=== PATIENT | female | born 1970 | race Caucasian/White ===

== ENCOUNTER 2018-06-07 17:05 | Observation (INO) | payer OTHER, SELFPAY ==
[2018-06-07] VITALS (10 sets, daily range): BP systolic 121–162; BP diastolic 69–82; PULSE 74–92; RESP 15–21; TEMP 36.7–36.9; O2SAT 99–100; BMI 38.7; BMI 37.9; BMI 38.0
--- NOTE | 2018-06-07 17:43 | EKG12_ITS ---
Test Reason : CHEST PAIN Blood Pressure : / mmHG Vent. Rate : 077 BPM Atrial Rate : 077 BPM P-R Int : 142 ms QRS Dur : 086 ms QT Int : 394 ms P-R-T Axes : 022 016 061 degrees QTc Int : 445 ms Normal sinus rhythm T wave abnormality, consider inferior ischemia T wave abnormality, consider anterolateral ischemia Abnormal ECG Confirmed by KIAH WALSH ([id number]), greeting card editor JERMAIN PORRAS ([id number]) on 06/23/2018 11:43:05 AM Referred By: Rukhsana Velázquez Confirmed By:KIAH WALSH
--- NOTE | 2018-06-07 17:44 | ED.VISSUMM ---
- ER Visit Summary Date of Service: 06/07/18 Chief Complaint: Chest pain History of Present Illness: The patient is a 48 F who presents for chest tightness. Onset was last night at rest, and it has gradually worsened. For 2 hours patient has had radiation into the right shoulder and arm that she describes as tingling and numbness. Tightness worsens with deep breaths or exertion. No change with movement. If patient tries to take a deep breath she ends up having to cough because of the tightness. No nausea, vomiting, abdominal pain, fever, recent illness. No back pain. Patient took 1 baby aspirin prior to coming in. She has a family history of coronary artery disease at a young age. Also family history of DVTs. Physical Examination: Vital signs: afebrile, hemodynamically stable, no hypoxia on room air General: well nourished, well developed, in no distress Skin: warm, dry, no rash, no pallor HEENT: normocephalic and atraumatic; PERRL, EOMI, moist mucous membranes Cardiovascular: regular rate and rhythm with soft systolic murmurs, no peripheral edema, 2+ pulses all distal extremities Respiratory: No increased work of breathing, lungs are clear to auscultation bilaterally, no rales, rhonchi or wheezing Abdominal: Abdomen is soft, nontender with normoactive bowel sounds, no guarding or rebound, no masses MSK: Moves all extremities, no deformities, normal strength Neuro: Awake and alert, oriented ?4. No facial droop, sensation and motor function intact and symmetric Test Results: Abnormal Lab Results 06/07/18 06/07/18 06/07/18 17:15 17:15 17:15 WBC 7.3 RBC 4.23 Hgb 11.3 L Hct 35.7 L MCV 84.4 MCH 26.7 L MCHC 31.7 L RDW 15.2 H RDW Differential 47.3 H Plt Count 306 MPV 10.6 Immature Gran % (Auto) 0.000 Neut % (Auto) 69.5 Lymph % (Auto) 21.8 [place] % (Auto) 7.0 Eos % (Auto) 1.4 Baso % (Auto) 0.3 Absolute Neuts (auto) 5.1 Absolute Lymphs (auto) 1.59 Total Counted Not Reportable PT 13.8 INR 1.1 APTT 28.1 D-Dimer Quant (PE/DVT) 0.33 Sodium 142 Potassium 3.5 Chloride 108 H Carbon Dioxide 25.0 Anion Gap 9 BUN 7 Creatinine 0.91 Estim Creat Clear Calc 64.58 Est GFR (MDRD) Af Amer 85 Est GFR (MDRD) Non-Af 70 BUN/Creatinine Ratio 7.7 L Glucose 94 Calcium 8.5 Troponin I < 0.015 Clinical Impression(s) from Imaging Studies Chest X-Ray 06/07/18 18:00 IMPRESSION: No acute cardiopulmonary process. Electronically Signed: Love Rios MD at 19:05 EST Tel , Service support , Medications Given Sodium Chloride () 1,000 mls @ 250 mls/hr IV .Q4H MICA Last Admin: 06/07/18 18:00 Dose: 250 mls/hr Discontinued Medications Aspirin (Aspirin, Baby) 324 mg PO X1 STA Stop: 06/07/18 17:43 Last Admin: 06/07/18 18:00 Dose: 324 mg Nitroglycerin (Nitrostat) 0.4 mg SUBLINGUAL Q5M MICA Stop: 06/07/18 17:56 Last Admin: 06/07/18 18:20 Dose: 0.4 mg Admin: 06/07/18 18:11 Dose: 0.4 mg Admin: 06/07/18 18:01 Dose: 0.4 mg Emergency Department Course and Treatment: [] Patient presents for chest pain, acutely worsening now with radiation into the right arm and shortness of breath. Patient has no personal risk factors for DVT but there is a family history of coagulopathy. D-dimer was performed and was within normal limits. EKG showed nonspecific ST and T wave changes but no obvious acute ischemic changes. Troponin negative. Labs otherwise unremarkable. Chest x-ray showed no acute process. Patient received additional aspirin and was given 3 sublingual nitroglycerin with complete resolution of her pain. Heart score is 4, which puts her at moderate risk for 30-day MACE. Patient will benefit from further cardiac workup and was discussed with the hospitalist for chest pain rule out. Treatment Plan: [] Disposition: [] Impression: Acute chest pain, concern for acute coronary syndrome This note was generated with [employer] software. It may contain incorrect words, spelling, and punctuation that were not noted in review of the chart prior to signing ED Disposition - Plan for ED Patient: Chief Complaint: Chest Pain Referrals: Ld Calhoun MD [NON-STAFF] -
[2018-06-07 17:52] LABS: Absolute Lymphocyte Count 1.59 X10^3/ul (0.83-4.51); Absolute Neutrophil Count 5.1 X10^3/uL (2.0-7.7); Basophil# 0.02 X10^3/uL; Basophil% 0.3 % (0-1); Eosinophils% 1.4 % (0-5); Hematocrit 35.7 % (37-47); Hemoglobin 11.3 g/dl (12.0-15.0); Lymphocyte # 1.59 X10^3/ul (4.0); Lymphocyte % 21.8 % (19-41); Mean Corp Hgb Conc 31.7 g/gl (32-36); Mean Corpuscular Hgb 26.7 pg (27.0-32.0); Mean Corpuscular Volume 84.4 fL (81-99); Mean Platelet Vol. 10.6 fl (6.2-12.0); Monocyte# 0.51 X10^3/uL; Neutrophil # 5.07 X10^3/uL (2.7-7.7); Neutrophil % 69.5 % (47-70); Platelet Count 306 K/mm3 (150-450); RBC Distribution Width CV 15.2 % (11.6-14.6); RBC Distribution Width SD 47.3 fl (35.1-43.9); Red Blood Count 4.23 M/mm3 (4.2-5.4); White Blood Count 7.3 K/mm3 (4.4-11.0)
[2018-06-07 17:53] LABS: POSITIVE COUNT NO; POSITIVE DIFFERENTIAL NO; POSITIVE MORPHOLOGY NO
[2018-06-07 17:55] LABS: International Normalized Ratio 1.1; Prothrombin Time (Protime)PT. 13.8 SECONDS (11.7-14.9)
[2018-06-07 17:56] LABS: Partial Thromboplast Time 28.1 Seconds (24.1-36.2)
[2018-06-07 17:58] LABS: D-Dimer Quantitative (DVT/PE) 0.33 FEU/ug/m (0.27-0.49)
[2018-06-07] MEDS: Aspirin 81 MG TAB.CHEW 324 MG PO (18:00)
[2018-06-07] MEDS: 0.9% Normal Saline 1,000 ML 250 ML IV (18:00)
--- NOTE | 2018-06-07 18:00 | RAD_ITS ---
STUDY: X-RAY CHEST REASON FOR EXAM: Female, 48 years old. Chest tightness. TECHNIQUE: PA and lateral views of the chest. COMPARISON: None. FINDINGS: The lungs are clear and expanded. There is no demonstrated pleural abnormality. Normal size heart. Normal mediastinum and pedro. Normal visualized pulmonary arteries. Normal visualized aortic arch and descending thoracic aorta. Normal visualized thoracic spine. Normal visualized ribs, clavicles, and shoulders. There is no demonstrated abnormality of the visualized soft tissue structures of the upper abdomen. RAD/Chest PA and Lateral IMPRESSION: No acute cardiopulmonary process. Electronically Signed: Love Rios MD at 19:05 EST Tel , Service support ,
[2018-06-07 18:04] LABS: Anion Gap 9 (5-15); BUN 7 mg/dL (7-18); BUN/Creat Ratio 7.7 RATIO (10-20); Calcium,Total 8.5 mg/dL (8.5-10.1); Chloride 108 mmol/L (98-107); Creatinine, Serum 0.91 mg/dL (0.55-1.02); EST Glomerular Filtration Rate 70 mL/min (>60); Est Glom Filt Rate - Afr Amer 85 mL/min (>60); Estimated Creatinine Clearance 64.58 ml/min; Glucose 94 mg/dL (74-106); Potassium 3.5 mmol/L (3.5-5.1); Sodium Level 142 mmol/L (136-145)
--- NOTE | 2018-06-07 20:31 | HP.PCM_ITS ---
History of Present Illness Date of Admission: 06/07/18 Chief Complaint: Chest pain The patient is a 48 year old F with past medical history of depression. She was admitted through the ED on 06/07/2018 with a complaint of chest pain about a days duration. Pain is retrosternal, described as a tightness and discomfort, with a stiff shortness of breath, diaphoresis and lightheadedness. She has not had such chest pain in the past. She denies any fever or chills, any cough, any palpitations, any abdominal pain, any diarrhea vomiting. She has a strong family history of cardiovascular disease with her father having multiple heart attacks and her brother also having multiple strokes. She is never been a s moker but was exposed to secondhand smoke for 21 years. Review of systems otherwise negative. Vitals in the ED was significant for respiratory rate of 21 and CBC and BMP were essentially unremarkable. Initial troponin was negative and EKG showed mild T wave inversions in anterolateral and inferior leads. Chest x-ray showed no acute cardiopulmonary process. She is been admitted to manage for chest pain to rule out ACS. [] Past Medical History Medical History: Medical History (Last Reviewed 10/27/17 @ 06:36 by Montserrat Gamble) Arthritis M19.90 Fatigue R53.83 Hx of fracture of fibula Z87.81 Hx of fracture of tibia Z87.81 Incontinence R32 Knee pain M25.569 Migraine G43.909 induced hypertension O13.9 Stomach ulcer K25.9 Allergies cephalexin [From Keflex] Allergy (Verified 10/27/17 06:36) Other keflex Adverse Reaction (Uncoded 10/02/17 11:51) yeast infection Home Medications: Ambulatory Orders Medication Instructions Recorded Bupropion HCl [Bupropion Xl] 300 mg PO DAILY 06/07/18 Cholecalciferol (Vitamin D3) 2,000 unit PO DAILY 06/07/18 [Vitamin D3] Surgical History: Surgical History (Last Reviewed 10/27/17 @ 06:36 by Montserrat Gamble) Hx of total knee arthroplasty Z96.659 Psychiatric History: Depression GIS DATABASE ADMINISTRATOR History: No pertinent GIS DATABASE ADMINISTRATOR history Lives: With Family - exposed to second hand smoke for 21 years Smoking Status: Never smoker Alcohol: None - *Family History Paternal Family History: Family History (Last Reviewed 05/14/18 @ 06:36 by Montserrat Gamble) Other CAD (coronary artery disease) Depression Diabetes High cholesterol Hypertension Obesity Thyroid disorder History Items: Heart Disease, Hypertension Sibling Family History: Family History (Last Reviewed 10/27/17 @ 06:36 by Montserrat Gamble) Other CAD (coronary artery disease) Depression Diabetes High cholesterol Hypertension Obesity Thyroid disorder History Items: Stroke Review of Systems Constitutional: Denies: Chills, Fever, Malaise, Weakness, Weight Change, Fatigue Eyes: Denies: Blurred vision HEENT: Denies: Head Aches, Sinus Congestion, Sinus Drainage Cardiovascular: Reports: Chest Pain, Chest Pressure, Chest Tightness, Heaviness, Light Headedness. Denies: Edema, Orthopnea, Palpitations Respiratory: Reports: Shortness of Breath. Denies: Cough, Shortness of breath at rest, Sputum production Gastrointestinal: Denies: Abdominal Pain, Nausea, Vomiting Genitourinary: Denies: Dysuria Musculoskeletal: Denies: Joint Pain, Joint Tenderness Skin: Denies: Rash, Wounds Neurological: Denies: Numbness, Tingling, Focal weakness Psychiatric: Denies: Anxiety, Depression, Homicidal Ideations, Suicidal Ideations Hematologic/ Lymphatic: Denies: Easy Bruising, Easy Bleeding VTE Information - Inpt Only VTE Present on Admission: No VTE Pharm Prophylaxis ordered?: Yes - Physical Exam General: Alert, Oriented x3, Cooperative, No apparent distress HEENT: Atraumatic, PERRLA, EOMI, Normocephalic Oral: Moist Mucosa Neck: Supple, No JVD, Negative Carotid Bruits Lungs: Clear to auscultation, Normal air movement, No rhonchi, No wheeze, No rales Cardiovascular: Regular rate, Regular Rhythm, Normal S1, Normal S2, No murmurs Abdomen: Bowel Sounds Present, Soft, Non Tender, Non-Distended, No Hepato- splenomegaly Extremities: No clubbing, No cyanosis, No edema, Capillary Refill Less than 3 Seconds Skin: No rashes, No breakdown Musculoskeletal: No Tenderness to Palpation of Joints or Extremities Lymphatic: No Cervical, Supraclavicular, or Inguinal Adenopathy Neurological: Cranial nerves II-XII grossly intact Psych/Mental Status: Normal Affect, Appropriate, Alert and oriented to time, place, person, mood and affect Vital Signs Temp Pulse Resp BP Pulse Ox 98.1 F 76 15 123/70 H 100 06/07/18 17:06 06/07/18 19:44 06/07/18 19:44 06/07/18 19:44 06/07/18 19:44 Oxygen Delivery Method Room Air Weight: 225 lb 12.054 oz Body Mass Index (BMI) 38.7 Laboratory Tests Past 24 Hrs 06/07/18 06/07/18 06/07/18 17:15 17:15 17:15 WBC 7.3 RBC 4.23 Hgb 11.3 L Hct 35.7 L MCV 84.4 MCH 26.7 L MCHC 31.7 L RDW 15.2 H RDW Differential 47.3 H Plt Count 306 MPV 10.6 Immature Gran % (Auto) 0.000 Neut % (Auto) 69.5 Lymph % (Auto) 21.8 [place] % (Auto) 7.0 Eos % (Auto) 1.4 Baso % (Auto) 0.3 Absolute Neuts (auto) 5.1 Absolute Lymphs (auto) 1.59 Total Counted Not Reportable PT 13.8 INR 1.1 APTT 28.1 D-Dimer Quant (PE/DVT) 0.33 Sodium 142 Potassium 3.5 Chloride 108 H Carbon Dioxide 25.0 Anion Gap 9 BUN 7 Creatinine 0.91 Estim Creat Clear Calc 64.58 Est GFR (MDRD) Af Amer 85 Est GFR (MDRD) Non-Af 70 BUN/Creatinine Ratio 7.7 L Glucose 94 Calcium 8.5 Troponin I < 0.015 Diagnostic Data Chest X-Ray 06/07/18 18:00 IMPRESSION: No acute cardiopulmonary process. Electronically Signed: Love Rios MD at 19:05 EST Tel , Service support , Assessment/Plan All Active Problems (Last Reviewed 10/27/17 @ 06:36 by Montserrat Gamble) Impetigo (Acute) Maxillary sinusitis (Acute) Conjunctivitis (Acute) 48-year-old female admitted with a complaint of chest pain 1. Chest pain to rule out ACS * Initial troponin negative but EKG showed mild T wave inversions in lateral leads. * Admit to PCU with telemetry * Cycle troponins * For stress test tomorrow if troponins are negative * 2. Depression: On bupropion DVT prophylaxis: Lovenox Code Visit OBSV E&M: [id number] Initial observation care L2
--- NOTE | 2018-06-07 21:20 | EKG12_ITS ---
Test Reason : CP ADMISSION Blood Pressure : / mmHG Vent. Rate : 078 BPM Atrial Rate : 078 BPM P-R Int : 148 ms QRS Dur : 088 ms QT Int : 394 ms P-R-T Axes : 046 013 058 degrees QTc Int : 449 ms Normal sinus rhythm Nonspecific T wave abnormality Abnormal ECG When compared with ECG of 07-JUN-2018 17:08, MANUAL COMPARISON REQUIRED, DATA IS UNCONFIRMED Confirmed by KIAH WALSH ([id number]), scientific editor JERMAIN PORRAS ([id number]) on 06/23/2018 1:08:52 PM Referred By: Rukhsana Velázquez Confirmed By:KIAH WALSH
[2018-06-07 21:56] LABS: Cholesterol 205 mg/dL (200); High Density Lipoprotein 52 mg/dL; Triglycerides 119 mg/dL; Very Low Density Lipoprotein 24 mg/dL (5-40)
[2018-06-08] VITALS (8 sets, daily range): BP systolic 99–118; BP diastolic 51–59; PULSE 63–87; RESP 16; TEMP 36.6–36.9; O2SAT 96–99
[2018-06-08] MEDS: Acetaminophen 325 MG Tablet 650 MG PO (00:56)
[2018-06-08] MEDS: 0.9% NaCl Peripheral Flush Adult/Peds IV (00:57)
[2018-06-08 03:51] LABS: Absolute Lymphocyte Count 1.68 X10^3/ul (0.83-4.51); Absolute Neutrophil Count 3.5 X10^3/uL (2.0-7.7); Basophil# 0.02 X10^3/uL; Basophil% 0.3 % (0-1); Eosinophil# 0.17 X10^3/uL; Eosinophils% 2.9 % (0-5); Hematocrit 30.6 % (37-47); Lymphocyte # 1.68 X10^3/ul (4.0); Lymphocyte % 28.3 % (19-41); Mean Corp Hgb Conc 32.7 g/gl (32-36); Mean Corpuscular Hgb 27.9 pg (27.0-32.0); Mean Corpuscular Volume 85.5 fL (81-99); Mean Platelet Vol. 11.1 fl (6.2-12.0); Monocyte# 0.59 X10^3/uL; Monocyte% 9.9 % (0-10); Neutrophil # 3.47 X10^3/uL (2.7-7.7); Neutrophil % 58.4 % (47-70); Platelet Count 265 K/mm3 (150-450); RBC Distribution Width CV 15.2 % (11.6-14.6); RBC Distribution Width SD 45.9 fl (35.1-43.9); Red Blood Count 3.58 M/mm3 (4.2-5.4); White Blood Count 5.9 K/mm3 (4.4-11.0)
[2018-06-08 03:52] LABS: POSITIVE COUNT NO; POSITIVE DIFFERENTIAL NO; POSITIVE MORPHOLOGY NO
[2018-06-08 03:54] LABS: International Normalized Ratio 1.1; Prothrombin Time (Protime)PT. 14.2 SECONDS (11.7-14.9)
[2018-06-08 04:02] LABS: Anion Gap 8 (5-15); BUN 7 mg/dL (7-18); BUN/Creat Ratio 9.8 RATIO (10-20); Calcium,Total 7.8 mg/dL (8.5-10.1); Chloride 110 mmol/L (98-107); Creatinine, Serum 0.71 mg/dL (0.55-1.02); EST Glomerular Filtration Rate 93 mL/min (>60); Est Glom Filt Rate - Afr Amer 112 mL/min (>60); Estimated Creatinine Clearance 82.77 ml/min; Glucose 91 mg/dL (74-106); Potassium 3.4 mmol/L (3.5-5.1); Sodium Level 144 mmol/L (136-145)
--- NOTE | 2018-06-08 05:55 | EKG12_ITS ---
Test Reason : AM EKG Blood Pressure : / mmHG Vent. Rate : 069 BPM Atrial Rate : 069 BPM P-R Int : 156 ms QRS Dur : 094 ms QT Int : 432 ms P-R-T Axes : 048 019 035 degrees QTc Int : 462 ms Normal sinus rhythm Normal ECG When compared with ECG of 07-JUN-2018 21:42, MANUAL COMPARISON REQUIRED, DATA IS UNCONFIRMED Confirmed by KIAH WALSH ([id number]), sound editor JERMAIN PORRAS ([id number]) on 06/23/2018 1:10:59 PM Referred By: Rukhsana Velázquez Confirmed By:KIAH WALSH
[2018-06-08] MEDS: Aspirin 81 MG TAB.CHEW PO (06:41)
[2018-06-08] MEDS: buPROPion (XL) 300 MG TABLET.XL PO (13:50)
--- NOTE | 2018-06-08 15:50 | STRESSREP ---
Stress Test Report Date: 06/08/2018 Procedure: Exercise tolerance test/imaging study Indications: Chest pain Consent: Per the patient Procedure: The patient exercised on a Tito protocol for 5 minutes and 30 seconds completing Stage IO and 2 minutes and 30 seconds of Stage II achieving a peak heart rate of 169 bpm (98 % predicted maximalheart rate) with a peak blood pressure 160/74 mmHg and a peak MET capacity of 7 METs. The baseline ECG demonstrated normal sinus rhythm. The peak exercise ECG demonstrated no obvious ECG changes. There were no cardiac dysrhythmias pretest, during exercise, or recovery. The functional capacity was considered average. There was a complaint of chest discomfort during exercise and mild chest discomfort during recovery with spontaneous resolution. The examination was discontinued secondary to dyspnea. Impression: 1. Technically adequate (percent predicted maximal heart rate greater than 85%) exercise tolerance test 2. Peak exercise ECG with no obvious ECG change 3. There were no cardiac dysrhythmias pretest, during exercise, or recovery 4. Nuclear images pending Myocardial perfusion imaging study: Technique: The patient was injected with 14.6 mCi of technetium 99m Cardiolite and subsequently rest SPECT Cardiolite nuclear imaging was obtained in the horizontal long, vertical long, and short axis views. The patient exercised on a Tito protocol for 5 minutes and 30 seconds completing Stage I and 2 minutes and 30 seconds of Stage II achieving a peak heart rate of 169 bpm (98 % predicted maximal heart rate) with a peak blood pressure 160/74 mmHg and a peak MET capacity of 7 METs. The patient was injected with 45 mCi of technetium 99m Cardiolite and subsequently stress SPECT Cardiolite nuclear imaging was obtained in the horizontal long, vertical long, and short axis views. A gated Cardiolite study at peak stress was obtained. Interpretation: Rest and stress SPECT Cardiolite nuclear imaging status post realignment, normalization, and attenuation correction, demonstrates the appearance of relative uniform tracer uptake and myocardial perfusion appearing within normal limits. There is end systolic thickening and brightening. The gated Cardiolite study demonstrates myocardial thickening and inward wall motion. The reported LVEF is 76 %. Impression: 1. Rest and stress SPECT Cardiolite nuclear imaging demonstrate relative uniform tracer uptake and myocardial perfusion appearing within normal limits. 2. The gated Cardiolite study reports an LVEF of 76 %. This note was generated with [employer] software. It may contain incorrect words, spelling, and punctuation that were not noted in checking the note before signing.
--- NOTE | 2018-06-08 16:02 | DCINST_ITS ---
You will use the following diet at home:: Regular Your food should be the consistency of: Regular Your liquids should be the consistency of: Regular/Thin Discharge Activity: Return to Normal Activity, No Restrictions Call your doctor if you observe: Shortness of breath, Dizziness, Fainting spells, Chest pain, Increased palpitations (irregular heartbeat) Allergies/Adverse Reactions: Allergies cephalexin [From Keflex] Allergy (Verified 10/27/17 06:36) Other keflex Adverse Reaction (Uncoded 10/02/17 11:51) yeast infection Medications to take at Discharge Bupropion HCl [Bupropion Xl] 300 mg PO DAILY 06/07/18 Cholecalciferol (Vitamin D3) [Vitamin D3] 2,000 unit PO DAILY 06/07/18 Primary Care Physician: Ld Calhoun MD [NON-STAFF] - Please follow up with your Primary Care Physician in: 3-5 days Test Results: Test results from this visit will be discussed in further detail at your follow- up appointment, if applicable.
--- NOTE | 2018-06-08 16:07 | DS.PCM_ITS ---
Discharge Date and Diagnosis Date of Admission: 06/07/18 Date of Discharge: 06/08/18 Hospital Course and Treatment Imaging Results: 06/08/18 12:15 Nuclear Stress Test - Treadmil [NM] Routine Consults: None Operations: None Procedures: Nuclear stress test - Interpretation: Rest and stress SPECT Cardiolite nuclear imaging status post realignment, normalization, and attenuation correction, demonstrates the appearance of relative uniform tracer uptake and myocardial perfusion appearing within normal limits. There is end systolic thickening and brightening. The gated Cardiolite study demonstrates myocardial thickening and inward wall motion. The reported LVEF is 76 %. Impression: 1. Rest and stress SPECT Cardiolite nuclear imaging demonstrate relative uniform tracer uptake and myocardial perfusion appearing within normal limits. 2. The gated Cardiolite study reports an LVEF of 76 %. Summary of Care Provided: Per HPI: The patient is a 48 year old F with past medical history of depression. She was admitted through the ED on 06/07/2018 with a complaint of chest pain about a days duration. Pain is retrosternal, described as a tightness and discomfort, with a stiff shortness of breath, diaphoresis and lightheadedness. She has not had such chest pain in the past. She denies any fever or chills, any cough, any palpitations, any abdominal pain, any diarrhea vomiting. She has a strong family history of cardiovascular disease with her father having multiple heart attacks and her brother also having multiple strokes. She is n ever been a smoker but was exposed to secondhand smoke for 21 years. Review of systems otherwise negative. Vitals in the ED was significant for respiratory rate of 21 and CBC and BMP were essentially unremarkable. Initial troponin was negative and EKG showed mild T wave inversions in anterolateral and inferior leads. Chest x-ray showed no acute cardiopulmonary process. She is been admitted to manage for chest pain to rule out ACS. Vital Signs - 24 hr Temp Pulse Resp BP Pulse Ox 06/08/18 15:19 87 06/08/18 13:59 98 F 85 16 113/59 L 97 06/08/18 11:00 71 06/08/18 09:15 98.4 F 77 16 118/57 L 96 06/08/18 07:13 65 06/08/18 06:36 97.9 F 63 16 99/51 L 99 06/08/18 04:00 98.0 F 70 16 105/54 L 98 06/08/18 03:00 71 06/07/18 23:00 92 06/07/18 21:58 98.5 F 75 16 121/69 H 99 06/07/18 20:40 98.4 F 75 21 H 124/70 H 99 06/07/18 19:44 76 15 123/70 H 100 06/07/18 18:20 82 124/79 H 06/07/18 18:11 74 140/81 H 06/07/18 18:05 82 17 140/81 H 99 06/07/18 18:01 80 137/82 H 06/07/18 17:50 100 06/07/18 17:06 98.1 F 78 19 H 162/75 H 100 General: Alert, Oriented x3, Cooperative, No apparent distress HEENT: Atraumatic, EOMI, Normocephalic Oral: Moist Mucosa Neck: Supple, No JVD Lungs: Clear to auscultation, Normal air movement, No rhonchi, No wheeze, No rales Cardiovascular: Regular rate, Regular Rhythm, Normal S1, Normal S2, No murmurs Abdomen: Soft, Non Tender, Non-Distended, No Hepato-splenomegaly Extremities: No edema, Capillary Refill Less than 3 Seconds Skin: No rashes, No breakdown Musculoskeletal: No Tenderness to Palpation of Joints or Extremities Neurological: Motor Exam 5/5 strength throughout, Sensory exam intact to light touch and pain Psych/Mental Status: Normal Affect, Appropriate Hospital Course: 1. Chest pain rule out - She presented with intermittent substernal chest ti ghtness and pressure not so much pain. She had an EKG which was nonischemic, and she had serial troponins that were negative. She underwent a cardiac stress test today which was negative for any ischemic changes. Part of the concern with her, is that her father had a heart attack at the age of 46 and had 4 vessels blocked. Does admit that she has had some stress over the last couple months with buying a new house and the holidays. She was just recently increased on her Wellbutrin to 300 mg on . I did discuss with her weight loss techniques and dieting and exercising, she is to follow-up with her PCP in 3-5 days. Since her stress test was negative and she is only 48 years old, no aspirin on discharge at this time. 2. Depression/anxiety - Continue with Wellbutrin and follow-up with PCP. - Physical Exam Vital Signs Temp Pulse Resp BP Pulse Ox 98 F 87 16 113/59 L 97 06/08/18 13:59 06/08/18 15:19 06/08/18 13:59 06/08/18 13:59 06/08/18 13:59 Oxygen Delivery Method Room Air Weight: 221 lb 1.978 oz Body Mass Index (BMI) 37.9 Intake and Output for Last 24 Hours 06/06/18 06/07/18 06/08/18 23:59 23:59 23:59 Intake Total 240 / 240 Balance 240 / 240 Laboratory Tests Past 24 Hrs 06/07/18 06/07/18 06/07/18 17:15 17:15 17:15 WBC 7.3 RBC 4.23 Hgb 11.3 L Hct 35.7 L MCV 84.4 MCH 26.7 L MCHC 31.7 L RDW 15.2 H RDW Differential 47.3 H Plt Count 306 MPV 10.6 Immature Gran % (Auto) 0.000 Neut % (Auto) 69.5 Lymph % (Auto) 21.8 [place] % (Auto) 7.0 Eos % (Auto) 1.4 Baso % (Auto) 0.3 Absolute Neuts (auto) 5.1 Absolute Lymphs (auto) 1.59 Total Counted Not Reportable PT 13.8 INR 1.1 APTT 28.1 D-Dimer Quant (PE/DVT) 0.33 Sodium 142 Potassium 3.5 Chloride 108 H Carbon Dioxide 25.0 Anion Gap 9 BUN 7 Creatinine 0.91 Estim Creat Clear Calc 64.58 Est GFR (MDRD) Af Amer 85 Est GFR (MDRD) Non-Af 70 BUN/Creatinine Ratio 7.7 L Glucose 94 Calcium 8.5 Troponin I < 0.015 Triglycerides Cholesterol LDL Cholesterol VLDL Cholesterol HDL Cholesterol 06/07/18 06/07/18 06/08/18 17:15 21:32 00:15 WBC RBC Hgb Hct MCV MCH MCHC RDW RDW Differential Plt Count MPV Immature Gran % (Auto) Neut % (Auto) Lymph % (Auto) [place] % (Auto) Eos % (Auto) Baso % (Auto) Absolute Neuts (auto) Absolute Lymphs (auto) Total Counted PT INR APTT D-Dimer Quant (PE/DVT) Sodium Potassium Chloride Carbon Dioxide Anion Gap BUN Creatinine Estim Creat Clear Calc Est GFR (MDRD) Af Amer Est GFR (MDRD) Non-Af BUN/Creatinine Ratio Glucose Calcium Troponin I < 0.015 < 0.015 Triglycerides 119 Cholesterol 205 H LDL Cholesterol 129 VLDL Cholesterol 24 HDL Cholesterol 52 06/08/18 06/08/18 06/08/18 03:32 03:32 03:32 WBC 5.9 RBC 3.58 L Hgb 10.0 L Hct 30.6 L MCV 85.5 MCH 27.9 MCHC 32.7 RDW 15.2 H RDW Differential 45.9 H Plt Count 265 MPV 11.1 Immature Gran % (Auto) 0.200 Neut % (Auto) 58.4 Lymph % (Auto) 28.3 [place] % (Auto) 9.9 Eos % (Auto) 2.9 Baso % (Auto) 0.3 Absolute Neuts (auto) 3.5 Absolute Lymphs (auto) 1.68 Total Counted Not Reportable PT INR APTT D-Dimer Quant (PE/DVT) Sodium 144 Potassium 3.4 L Chloride 110 H Carbon Dioxide 26.0 Anion Gap 8 BUN 7 Creatinine 0.71 Estim Creat Clear Calc 82.77 Est GFR (MDRD) Af Amer 112 Est GFR (MDRD) Non-Af 93 BUN/Creatinine Ratio 9.8 L Glucose 91 Calcium 7.8 L Troponin I < 0.015 Triglycerides Cholesterol LDL Cholesterol VLDL Cholesterol HDL Cholesterol 06/08/18 03:32 WBC RBC Hgb Hct MCV MCH MCHC RDW RDW Differential Plt Count MPV Immature Gran % (Auto) Neut % (Auto) Lymph % (Auto) [place] % (Auto) Eos % (Auto) Baso % (Auto) Absolute Neuts (auto) Absolute Lymphs (auto) Total Counted PT 14.2 INR 1.1 APTT 30.0 D-Dimer Quant (PE/DVT) Sodium Potassium Chloride Carbon Dioxide Anion Gap BUN Creatinine Estim Creat Clear Calc Est GFR (MDRD) Af Amer Est GFR (MDRD) Non-Af BUN/Creatinine Ratio Glucose Calcium Troponin I Triglycerides Cholesterol LDL Cholesterol VLDL Cholesterol HDL Cholesterol Discharge Activity: Return to Normal Activity, No Restrictions Call your doctor if you observe: Shortness of breath, Dizziness, Fainting spells, Chest pain, Increased palpitations (irregular heartbeat) Home Medications: Medications to take at Discharge Bupropion HCl [Bupropion Xl] 300 mg PO DAILY 06/07/18 Cholecalciferol (Vitamin D3) [Vitamin D3] 2,000 unit PO DAILY 06/07/18 Primary Care Physician: Ld Calhoun MD [NON-STAFF] - Please follow up with your Primary Care Physician in: 3-5 days Disposition: Home Minutes spent on discharge:: 35 Patient Condition:: Good Medical Necessity - Tobacco Use Smoking Status: Never smoker Meaningful Use Info Meaningful Use Diagnoses (Choose all that apply): None applicable Code Visit OBSV E&M: 23228 Observation care discharge
[2018-06-08] MEDS: Enoxaparin 40 MG/0.4 ML Syringe SC (16:08)
== END 2018-06-08 16:02 | disposition home or self-care (01) ==
LOC: ED 18:26 → PCU 20:39
PROVIDERS: Admitting Provider Student in an Organized Health Care Education/Training Program; Emergency Provider Emergency Medicine; Referring Provider Student in an Organized Health Care Education/Training Program; Visit Provider Family Medicine
DX: R07.89 Other chest pain (principal); Z23 Encounter for immunization; R20.2 Paresthesia of skin; R20.0 Anesthesia of skin; Z82.49 Family history of ischemic heart disease and other diseases of the circulatory system; Z79.899 Other long term (current) drug therapy; M19.90 Unspecified osteoarthritis, unspecified site; F32.9 Major depressive disorder, single episode, unspecified
CPT/HCPCS: 36415; 71046; 78452; 80048; 80061; 84484; 85025; 85379; 85610; 85730; 93005; 93017; 96360; 96361; 96372; 99218; 99285; A9500; J7030; 90686; A4216; G0378

== ENCOUNTER 2019-03-15 19:45 | Emergency (ER) | payer OTHER, SELFPAY ==
[2018-06-07 21:23] VITALS: BMI 37.9
[2019-03-15 19:47] VITALS: BP 127/68; PULSE 83; RESP 16; TEMP 36.6; O2SAT 100; BMI 36.3
--- NOTE | 2019-03-15 20:00 | RAD_ITS ---
STUDY: X-RAY - LEFT FOOT CLINICAL: Female, 48 years old. Pain TECHNIQUE: 3 view(s) of the foot. COMPARISON: None. FINDINGS: There is no evidence of fracture or dislocation. Plantar calcaneal spurring is present. Small degenerative calcification present in the lateral foot. There are no radiodense foreign bodies. RAD/Foot min 3 Views IMPRESSION: No fracture or dislocation. Plantar calcaneal spurring. Electronically Signed: Ld Green, at 20:21 EDT Tel , Service support ,
--- NOTE | 2019-03-15 20:28 | ED.DCSUM_ITS ---
- ER Visit Summary Date of Service: 03/15/19 Chief Complaint: Foot pain History of Present Illness: The patient is a 48 F with left foot pain after she dropped a chair on it. Physical Examination: Ecchymosis to dorsal left foot. Tender to the area. Neurovascular intact. Skin intact. Test Results: X-rays negative Emergency Department Course and Treatment: Patient declined pain medicine. Rest, ice, elevate. Anti-inflammatories for pain. She has crutches at home. Follow-up for continued pain. Treatment Plan: As above Disposition: Discharge Impression: 1. Left foot contusion This note was generated with [employer] dictation software. It may contain incorrect words, spelling, and punctuation that were not noted in review of the chart prior to signing ED Disposition - Plan for ED Patient: Referrals: Care Physician,No Primary [Primary Care Provider] -
--- NOTE | 2019-03-15 20:32 | ED.DEP ---
ED Disposition - Plan for ED Patient: Instructions: CONTUSION, Foot
[2019-03-15 20:57] VITALS: PULSE 75; RESP 18; O2SAT 97
== END 2019-03-15 20:58 | disposition home or self-care (01) ==
LOC: ED 20:44
PROVIDERS: Emergency Provider Emergency Medicine
DX: S90.32XA Contusion of left foot, initial encounter (principal); W20.8XXA Other cause of strike by thrown, projected or falling object, initial encounter; Y93.9 Activity, unspecified; Y92.89 Other specified places as the place of occurrence of the external cause; Y99.9 Unspecified external cause status
CPT/HCPCS: 73630; 99282

== ENCOUNTER → 2019-11-04 14:09 | Outpatient (CLI) | payer BC, SELFPAY ==
[2019-11-04 13:47] VITALS: BMI 36.3
--- NOTE | 2019-11-04 14:13 | RAD_ITS ---
STUDY: X-RAY CHEST REASON FOR EXAM: Female, 49 years old. COUGH SINCE JUNE, WORSE FOR THE LAST COUPLE OF WEEKS. TECHNIQUE: Frontal and lateral views of the chest. COMPARISON: None. FINDINGS: The lungs are clear and expanded. There is no demonstrated pleural abnormality. Normal size heart. Normal mediastinum and pedro. Normal visualized pulmonary arteries. Normal visualized aortic arch and descending thoracic aorta. Normal visualized thoracic spine. Normal visualized ribs, clavicles, and shoulders. There is no demonstrated abnormality of the visualized soft tissue structures of the upper abdomen. RAD/Chest PA and Lateral IMPRESSION: Normal x-ray examination of the chest. Electronically Signed: Sidney Alicea, at 14:56 EDT Tel , Service support ,
== END ==
LOC: MTRAD 14:11
PROVIDERS: Referring Provider Physician Assistant; Visit Provider Physician Assistant
DX: R05 Cough (principal)
CPT/HCPCS: 71046

== ENCOUNTER 2020-05-19 19:01 | Emergency (ER) | payer BC, SELFPAY ==
[2019-11-04 13:47] VITALS: BMI 36.3
[2020-05-19 19:02] VITALS: BP 163/92; PULSE 90; RESP 22; TEMP 36.6; O2SAT 99; BMI 39.9
--- NOTE | 2020-05-19 19:13 | ED.DCSUM_ITS ---
- ER Visit Summary Date of Service: 05/19/20 Chief Complaint: Cough, fever and body aches History of Present Illness: The patient is a 50 F has medical history depression. Prior left knee replacement. Patient works as a nurse in [place]. States yesterday started having body aches and cough. Today low- grade fever. Loose stools. No vomiting. No abdominal pain or dysuria. No shortness of breath. Physical Examination: Middle-aged female no acute distress. Vital signs are sta ble. Afebrile. Pulse ox 9 9% room air no hypoxia. HEENT exam unremarkable. Moist with membranes. Neck nontender no lymphadenopathy. No meningismus. Lungs clear to auscultation bilaterally. Dry cough. Heart regular rhythm no murmur rate about 90. Abdomen soft nontender normal bowel sounds no peritoneal signs. Extremities moves all 4. Nontender. Normal range of motion. Back nontender. Neurologically she is awake alert with no focal motor deficits. Test Results: Covid rapid antigen is positive. Portable 1 view chest x-ray interpreted by myself shows no acute abnormality. Read as normal. Radiologist also read the film and agrees. Emergency Department Course and Treatment: Patient appears a viral syndrome. May be Covid. Rapid Covid being obtained. Obdulio exam patient is doing well at 2045 PM. She will be discharged home. Quarantine for 10 days. Off work. Treatment Plan: Quarantine for 10 days. Off work. Tylenol for fever. Follow- up with your doctor if not improving. Return if worse. Disposition: Discharge Impression: COVID-19 viral syndrome. This note was generated with [employer] dictation software. It may contain incorrect words, spelling, and punctuation that were not noted in review of the chart prior to signing ED Disposition - Plan for ED Patient: Referrals: Care Physician,No Primary [Primary Care Provider] -
--- NOTE | 2020-05-19 19:43 | RAD_ITS ---
STUDY: X-RAY CHEST REASON FOR EXAM: Female, 50 years old. FEVER, COUGH, SOB, BODY ACHES STARTING YESTERDAY TECHNIQUE: Frontal view of the chest COMPARISON: 04 Nov 2019 FINDINGS: The lungs are clear and expanded. There is no demonstrated pleural abnormality. Normal size heart. Normal mediastinum and pedro. Normal visualized pulmonary arteries. Normal visualized aortic arch and descending thoracic aorta. Normal visualized thoracic spine. Normal visualized ribs, clavicles, and shoulders. There is no demonstrated abnormality of the visualized soft tissue structures of the upper abdomen. RAD/Chest 1 View (Portable) IMPRESSION: Normal x-ray examination of the chest. Electronically Signed: Jacob Brown, at 20:35 EST Tel , Service support ,
--- NOTE | 2020-05-19 20:46 | ED.DEP ---
ED Disposition - Plan for ED Patient: Disposition: Home or Assisted Living Instructions: Coronavirus Disease 2019 (COVID-19): Overview Referrals: Care Physician,No Primary [Primary Care Provider] - 1 Week if not improving Additional Instructions: Off work next 10 days. Plenty of fluids and rest. Tylenol for body aches. Follow-up with your doctor if not improving. Turn to the emergency department feeling a lot worse.
[2020-05-19 21:21] VITALS: PULSE 80; RESP 20; TEMP 37.3; O2SAT 95
== END 2020-05-19 21:21 | disposition home or self-care (01) ==
PROVIDERS: Emergency Provider Emergency Medicine
DX: U07.1 COVID-19 (principal); B34.9 Viral infection, unspecified; Z96.652 Presence of left artificial knee joint
CPT/HCPCS: 71045; 87426; 99282

== ENCOUNTER 2021-04-23 16:00 | Outpatient (RCR) | payer BC, SELFPAY ==
--- NOTE | 2021-04-06 10:11 | HP.PTEVAL ---
Patient's Visit Information ARTURO TINAJERO is a 50 year old F referred to Physical Therapy by Al Gibson PA-C with a diagnosis of PAIN IN LEFT KNEE,SPRAIN OF MEDIAL COLLATERAL LIGAMENT OF LEFT KNEE. Date of Evaluation: 04/05/21 Physical Therapist: Jona Zuniga, PT, Cert MDT, OCS - Visit Plan Frequency: 2x /Week Duration: 4 Weeks Plan: PT INTERVENTIONS ROM ,STRENGTHENING QUADS/HAMS/HIP ,MODALTIES AND FUNCTIONAL STRENGTHENING - Subjective This 50 y/o female presents to physical therapy with left knee pain. Patient injury to left knee occurred stepping of off step awkwardly . Patient had tingling ,pain with edema next day. Seen next day placed in immobilizer and crutches. Seen Michael RUTLEDGE recommended PT . x-rays -. Prescribed meloxicam. Location medial and lateral knee described as ache. Aggravating factors extended walking /standing ,squatting unable kneeling. Stairs aggravate knee. Alleviating rest ,ice and elevate. Patient sleeping okay. Patient was recommend to use crutches until RTD. Patient RTD 04/06. Patient hasn't RTW. Patient condition doesn't affects QOL and function. Patient had trauma to left knee thrown from horse at 24 y/o with multiple arthroscopy eventually had left TKR at 31 y/o . SOCIAL: . VOCATION: Nurse - Pain Left Knee Pain Intensity (Out of 10): 3 Pain Intensity Range: 10 - Objective POSTURE: mild forward posture. GAIT: reciprocal pattern. PALPTION: unremarkable. NEURO: denies paresthesia/tingling. EDEMA: absent. AROM: supine knee flexion 0-110 degrees. FLEXABILITY: hams WNL. MMT: quads/hams 4/5 ,hip flexion 4-/5,ankle 4/5. STAIRS: one step at time - Balance/Special Test Scores Lower Extremity Functional Score: 36 - Goals Goal 1:: I with HEP for left knee Goal Time Frame: 4-6 Weeks Goal 2:: Patient demonstrate 50% improvement with decrease pain to improve function. Goal Time Frame: 4-6 Weeks Goal 3:: Patient to increase AROM knee flexion by 5 degrees to improve stairs Goal Time Frame: 4-6 Weeks Goal 4:: Patient improve LFES score by 5 points to improve QOL Goal Time Frame: 4-6 Weeks Goal 5:: Patient return to prior level of function and stairs job demands with min limitation Goal Time Frame: 4-6 Weeks - Rehabilitation Potential Physical Therapy Diagnosis: This patient injury occurred stepping off step awkwardly causing pain decrease function with walking and standing impairing ability to RTW, thus benefit from skilled PT Rehabilitation Potential: Good - Anticipated Interventions Patient/Client Instruction: Educate patient on: Condition, Plan of Care For the Purpose of:: To decrease pain, To increase ROM, To improve muscle performance and motor function, To improve ability to perform ADL's, To increase tolerance to activity/condition/position, To improve performance and independence with ADL's, To improve ability of physical actions for home/community/work/leisure, To improve health of tissue, To decrease soft tissue restriction, To increase flexibility/ROM, To improve endurance, To reduce risk of recurrence Therapeutic Exercise to Include: Strength training, Endurance training, Balance training, Active ROM Comment: QUADS/HAMS/HIP For the Purpose of:: To decrease pain, To increase ROM, To improve muscle performance and motor function, To improve ability to perform ADL's, To increase tolerance to activity/condition/position, To improve ability of physical actions for home/community/work/leisure, To improve health of tissue, To decrease soft tissue restriction, To increase flexibility/ROM, To reduce risk of recurrence TENS: Yes IF ES: Yes Thermo therapy (hot pack): Yes Ultrasound (thermal/non thermal): Yes For the Purpose of:: To decrease pain, To improve nutrient delivery to tissue, To increase oxygenation perfusion, To improve health of tissue, To decrease soft tissue restriction Thank you for the opportunity to evaluate your patient. For Medicare and Medicare HMO plans, please review the plan of care and approve it. It will need to be FAXED BACK to us at [phone] for Medicare purposes. For Medicare only, by signing this I certify the plan of care. Please let me know if there are questions or concerns regarding this plan of care. Physician Signature: Date:
--- NOTE | 2021-07-02 13:26 | HP.PT.NRP ---
ARTURO TINAJERO was seen in my office for initial evaluation on 04/05/21. The following Plan of Care was established for this patient: Initial Frequency: 2x /Week Initial Duration: 4 Weeks Patient/Client Instruction: Educate patient on: Condition, Plan of Care For the Purpose of:: To decrease pain, To increase ROM, To improve muscle performance and motor function, To improve ability to perform ADL's, To increase tolerance to activity/condition/position, To improve performance and independence with ADL's, To improve ability of physical actions for home/community/work/leisure, To improve health of tissue, To decrease soft tissue restriction, To increase flexibility/ROM, To improve endurance, To reduce risk of recurrence Therapeutic Exercise to Include: Strength training, Endurance training, Balance training, Active ROM For the Purpose of:: To decrease pain, To increase ROM, To improve muscle performance and motor function, To improve ability to perform ADL's, To increase tolerance to activity/condition/position, To improve ability of physical actions for home/community/work/leisure, To improve health of tissue, To decrease soft tissue restriction, To increase flexibility/ROM, To reduce risk of recurrence TENS: Yes IF ES: Yes Thermo therapy (hot pack): Yes Ultrasound (thermal/non thermal): Yes For the Purpose of:: To decrease pain, To improve nutrient delivery to tissue, To increase oxygenation perfusion, To improve health of tissue, To decrease soft tissue restriction This patient was last seen in our office . Pertinent comments regarding their Physical therapy will appear below: Patient was seen for PT for right knee pain for ROM and strengthening doing well RTW At this point I will be discontinuing this patient from physical therapy. I would be happy to see this patient again in the future if found appropriate by the physician. Thank you! Jona Zuniga, PT, Cert MDT, OCS Balance/Gait/Functional tests - Balance/Special Test Scores Lower Extremity Functional Score: 61
== END 2021-04-23 19:00 | disposition home or self-care (01) ==
LOC: PT 16:00
PROVIDERS: Referring Provider Physician Assistant; Visit Provider Physician Assistant
DX: S83.412D Sprain of medial collateral ligament of left knee, subsequent encounter (principal); X58.XXXD Exposure to other specified factors, subsequent encounter
CPT/HCPCS: 97110; 97162

== ENCOUNTER 2024-08-21 12:35 | Emergency (ER) | payer OTHER, SELFPAY ==
[2024-08-21 12:36] VITALS: BP 142/90; PULSE 71; RESP 15; TEMP 36.2; O2SAT 99; BMI 38.0
--- NOTE | 2024-08-21 12:45 | RAD_ITS ---
PROCEDURE: WRIST MIN 3 VIEWS REASON FOR EXAM: 54-year-old female, fell last night and injured left wrist. Wrist pain radiates from wrist up into arm. TECHNIQUE: 3 view(s) of the left wrist COMPARISON: None. FINDINGS: No visible fracture. No suspicious bone lesion. Normal alignment. Soft tissues are unremarkable. RAD/Wrist min 3 Views IMPRESSION: No acute fracture. If symptoms persist, repeat radiographs in 7-10 days could be obtained to evaluate for occult fracture if clinically indicated. Reading Location: [id number]
--- NOTE | 2024-08-21 13:12 | EX.ED.UPPERE ---
HPI <AAMIR Robb - Last Filed: 08/21/24 13:57> History of Present Illness Chief Complaint: Upper Extremity Injury Narrative Narrative: 54-year-old female tripped and fell up stairs yesterday and states she hit her face on the ground and injured her left wrist trying to catch herself. No LOC. No blood thinners. When she woke up her left hand and wrist were more swollen and painful despite taking Tylenol. No weakness or numbness or tingling. She is right-hand dominant. PFSH <AAMIR Robb - Last Filed: 08/21/24 13:57> [facility] Medical History Left foot pain Abnormal mammogram Obesity (BMI 30-39.9) Plantar fasciitis of left foot Anxiety and depression History of anxiety delivery due to maternal disorder in first trimester URI (upper respiratory infection) Hx of fracture of tibia Incontinence Knee pain Migraine Fatigue Stomach ulcer Arthritis induced hypertension Home Medications ?Medication ?Instructions ?Recorded ?Last Taken ?Type multivitamin 1 tab PO DAILY 02/10/23 Unknown History bupropion HCl 300 mg 24 hr tablet, 300 mg PO DAILY #90 tabs 02/28/23 Unknown Rx extended release escitalopram oxalate 10 mg tablet 10 mg PO DAILY #60 tabs 06/30/23 Unknown Rx (Lexapro) Allergy/AdvReac Type Severity Reaction Status Date / Time cephalexin (From Keflex) Allergy Other Verified 08/21/24 12:38 Family History Mother Breast cancer DVT (deep venous thrombosis) Cataract Depression Cancer Asthma Hypertension Obesity Father Heart disease Myocardial infarction Diabetes Depression High cholesterol Hypertension Obesity Thyroid disorder Grandmother Macular degeneration TIA (transient ischemic attack) DVT (deep venous thrombosis) Glaucoma Cataract Diabetes Depression COPD (chronic obstructive pulmonary disease) Heart disease Hypertension Obesity Grandfather Cancer Cataract Hypertension Daughter Asthma Depression Obesity Brother Hypertension Other CAD (coronary artery disease) Surgical History History of left knee replacement History of repair of ACL H/O arthroscopic knee surgery H/O wisdom tooth extraction Hx of total knee arthroplasty Social History adopted: No household members: family and children housing: house current occupational status: employed current occupational exposures/hazards: No pets and animals: Yes pets and animals: cat(s), dog(s) and horse(s) leisure activities: reading and volunteer work history of recent travel: No sexually active: Yes Smoking Status: Never smoker alcohol intake: current alcohol intake frequency: holidays/special occasions only Alcohol type: hard liquor substance use type: does not use caffeine: Yes Type: carbonated beverages eating out: 1-3 times/week during the past year weight has: decreased > 10 lbs sapphire/sabianism: Catholic seatbelt use: sometimes do you feel safe at home: Yes ROS <AAMIR Robb - Last Filed: 08/21/24 13:57> ROS ED ROS Narrative GI: Negative for vomiting. Neuro: Negative for motor/sensory dysfunction. Musc: Positive for left wrist pain, swelling, trauma. EXAM <AAMIR Robb Last Filed: 08/21/24 13:57> Physical Exam Narrative Exam Narrative: CONST: Patient sitting in no acute distress. EYES: Normal inspection. HEAD: Normocephalic atraumatic, no raccoon eyes or Rob sign, no epistaxis or nasal septal hematoma, no hemotympanums. NECK: Normal inspection. RESP: No respiratory distress, CTAB. CVS: Regular rate and rhythm, no murmur, no gallop. SKIN: Color normal, no rash, warm, dry, intact. EXTREMITIES: Mild soft tissue swelling of the left dorsal hand and wrist. Tender over distal radius and left fifth metacarpal without deformity or crepitus. No tenderness of the shoulder elbow forearm or digits is present. Full range of motion and able to completely make a closed fist. Normal motor and sensory function in median radial and ulnar diffusions. 2+ radial pulses, brisk cap refill. NEURO: Alert and answering questions appropriately. PSYCH: Normal affect. Const Vital Signs: 08/21/24 12:36 Temperature 97.2 F L Temperature Source Temporal Pulse Rate 71 Respiratory Rate 15 Blood Pressure 142/90 H Blood Pressure Mean 107 Pulse Ox 99 Oxygen Delivery Method Room Air MDM <AAMIR Robb - Last Filed: 08/21/24 13:57> MDM MDM Narrative Medical decision making narrative: Differential includes left wrist/hand contusion versus fracture Protocol wrist x-ray was obtained in the waiting room and is negative. I can visualize the whole fifth metacarpal where she has tenderness and there is no fracture. I do not think an additional hand x-ray is indicated. She has full range of motion and is neurovascularly intact. Most of the pain is over the wrist. I provided a wrist splint, single dose of Magnolia here and instructions to take Tylenol or Motrin at home and use ice. She was discharged in stable condition. I have personally performed a face to face assessment of the patient and have reviewed the BREANNA Note. I performed a substantive portion of the visit including all aspects of the following. My harper findings include: History is [patient presents the emergency department with complaint of injury to her left hand and wrist. Patient states that she was walking up some steps at a restaurant when she fell forward hitting her face and injuring her left wrist and hand. Injury occurred yesterday. She had no loss of consciousness. Patient not on blood thinners.] Exam is [HEENT-PERRLA, EOMI. Cranial nerves II through XII grossly intact. TMs clear. Mucous membranes moist. No adenopathy. Cardiovascular-regular rate and rhythm without murmur or ectopy Lungs-clear to auscultation, chest wall stable without crepitus or subcu emphysema Abdomen-normoactive bowel sounds, soft, nontender, no rebound or rigidity, no peritoneal signs. Extremities-intact ?4, normal range of motion, normal pulses. Left upper extremity-patient has tenderness palpation over the central portion of the dorsum of the wrist and distal radius. No obvious deformity. No significant ecchymosis or bruising or soft tissue swelling noted. Patient also with some discomfort over the fifth metacarpal and proximal phalanx of the fifth finger. Neurovascular intact distally. Medical Decison Making [x-rays of the left wrist and hand obtained showed no obvious fractures. She will be given a wrist splint and advised use ibuprofen or Tylenol for discomfort and use ice and elevation.] Other additions or changes: [None] Radiography Diagnostic Testing: Clinical Impression(s) from Imaging Studies Wrist X-Ray 08/21/24 12:45 IMPRESSION: No acute fracture. If symptoms persist, repeat radiographs in 7-10 days could be obtained to evaluate for occult fracture if clinically indicated. Reading Location: [facility] <Dr. Guerrero Fernando, DO - Last Filed: 08/21/24 13:45> [facility] Narrative Medical decision making narrative: I have personally performed a face to face assessment of the patient and have reviewed the BREANNA Note. I performed a substantive portion of the visit including all aspects of the following. My harper findings include: History is [patient presents the emergency department with complaint of injury to her left hand and wrist. Patient states that she was walking up some steps at a restaurant when she fell forward hitting her face and injuring her left wrist and hand. Injury occurred yesterday. She had no loss of consciousness. Patient not on blood thinners.] Exam is [HEENT-PERRLA, EOMI. Cranial nerves II through XII grossly intact. TMs clear. Mucous membranes moist. No adenopathy. Cardiovascular-regular rate and rhythm without murmur or ectopy Lungs-clear to auscultation, chest wall stable without crepitus or subcu emphysema Abdomen-normoactive bowel sounds, soft, nontender, no rebound or rigidity, no peritoneal signs. Extremities-intact ?4, normal range of motion, normal pulses. Left upper extremity-patient has tenderness palpation over the central portion of the dorsum of the wrist and distal radius. No obvious deformity. No significant ecchymosis or bruising or soft tissue swelling noted. Patient also with some discomfort over the fifth metacarpal and proximal phalanx of the fifth finger. Neurovascular intact distally. Medical Decison Making [x-rays of the left wrist and hand obtained showed no obvious fractures. She will be given a wrist splint and advised use ibuprofen or Tylenol for discomfort and use ice and elevation.] Other additions or changes: [None] Radiography Diagnostic Testing: Clinical Impression(s) from Imaging Studies Wrist X-Ray 08/21/24 12:45 IMPRESSION: No acute fracture. If symptoms persist, repeat radiographs in 7-10 days could be obtained to evaluate for occult fracture if clinically indicated. Reading Location: [facility] Three-view x-rays of the left wrist obtained interpreted by myself as no evidence of fracture or dislocation. Radiology in agreement. Discharge Plan Triage Chief Complaint: Upper Extremity Injury ED Midlevel Provider: Shayy Vines ED Provider: Guerrero Fernando Dx/Rx/DC Orders Clinical Impression: Left wrist sprain, Fall, Closed head injury Instructions: ED Wrist Sprain Prescriptions: No Action bupropion HCl 300 mg tablet extended release 24 hr 300 mg PO DAILY Qty: 90 3RF multivitamin Tablet 1 tab PO DAILY escitalopram oxalate [Lexapro] 10 mg tablet 10 mg PO DAILY Qty: 60 1RF Primary Care Provider: Care Physician,No Primary Referrals: Maciej Bond MD [Med Staff - Active Staff] - Activity Restrictions/Additional Instructions: Ice and alternate Tylenol and ibuprofen as needed. Pain does not improve see your primary care doctor to have repeat x-rays in 7 to 10 days to rule out an underlying fracture. Print Language: [place] Disposition Disposition: Home, Self Care
[2024-08-21] MEDS: HYDROcodone Bitartrate/Apap 5/325 Tablet PO (13:47)
[2024-08-21 14:05] VITALS: BP 142/90; PULSE 71; RESP 15; TEMP 36.2; O2SAT 99
== END 2024-08-21 14:05 | disposition home or self-care (01) ==
PROVIDERS: Emergency Provider Emergency Medicine; Visit Provider Emergency Medicine
DX: S09.90XA Unspecified injury of head, initial encounter (principal); S63.92XA Sprain of unspecified part of left wrist and hand, initial encounter; W10.9XXA Fall (on) (from) unspecified stairs and steps, initial encounter
CPT/HCPCS: 73110; 99283